=== PATIENT | male | born 1995 | race Caucasian/White ===

== ENCOUNTER 2018-06-25 05:16 | Day surgery (SDC) | payer BC ==
[~2018-06-25] VITALS: Ht 175.3 cm; Wt 72.0 kg
[~2018-06-25 05:16] MED LIST: None per pt; potassium citrate PO
[2018-06-25] MEDS ORDERED: MIDAZOLAM 1 MG/ML, 2ML ONE (05:52)
[2018-06-25] MEDS ORDERED: CEFAZOLIN 1,000 MG ONE ×2 (05:53)
[2018-06-25] MEDS ORDERED: DEXAMETHASONE 4 MG/ML, 1ML ONE ×2 (05:53)
[2018-06-25] MEDS ORDERED: FENTANYL PF 250 MCG/5ML ONE (05:53)
[2018-06-25] MEDS ORDERED: PROPOFOL 10 MG/ML, 20ML ONE ×2 (05:53)
[2018-06-25] MEDS ORDERED: BUPIVACAINE/PF 0.5% ONE (05:53)
[2018-06-25] MEDS ORDERED: EPINEPHRINE 1 MG/ML, 1ML ONE ×2 (05:54→06:41)
[2018-06-25] MEDS ORDERED: ROCURONIUM 10MG/ML,5ML ONE (05:54)
[2018-06-25] MEDS ORDERED: LIDOCAINE-MPF 2% ,5ML ONE ×2 (05:54)
[2018-06-25] MEDS ORDERED: SUCCINYLCHOLINE 20 MG/ML, 10ML ONE (05:54)
[2018-06-25 05:57] VITALS: BP 123/72
[2018-06-25] MEDS ORDERED: LACTATED RINGERS 1,000 ML IV SCH (05:58)
[2018-06-25] MEDS ORDERED: GABAPENTIN 300 MG CAPSULE ONE (06:19)
[2018-06-25] MEDS ORDERED: ACETAMINOPHEN 500 MG TABLET ONE (06:20)
[2018-06-25] MEDS ORDERED: GABAPENTIN 300 MG CAPSULE PO ONE (06:30)
[2018-06-25] MEDS ORDERED: ACETAMINOPHEN 500 MG TABLET PO ONE (06:30)
[2018-06-25] MEDS ORDERED: BUPIVACAINE 0.25% ONE (06:40)
[2018-06-25] MEDS ORDERED: ESMOLOL 100 MG/10 ML ONE (06:58)
[2018-06-25] MEDS ORDERED: METOCLOPRAMIDE 5 MG/ML, 2ML IV PRN (07:00)
[2018-06-25] MEDS ORDERED: LABETALOL 5MG/ML, 20ML IV PRN (07:00)
[2018-06-25] MEDS ORDERED: FENTANYL PF 100 MCG/2ML IV PRN (07:00)
[2018-06-25] MEDS ORDERED: OXYcodone 5 MG/5 ML ORAL.SOL UDC PO PRN (07:00)
[2018-06-25] MEDS ORDERED: ALBUTEROL SULFATE 2.5 MG/3 ML NPPB PRN (07:00)
[2018-06-25] MEDS ORDERED: MORPHINE SULFATE 4 MG/ML, 1ML IVPush PRN (07:00)
[2018-06-25] MEDS ORDERED: METOPROLOL 1 MG/ML, 5ML IV PRN (07:00)
[2018-06-25] MEDS ORDERED: DIPHENHYDRAMINE 50 MG/ML, 1ML IVPush PRN (07:00)
[2018-06-25] MEDS ORDERED: MEPERIDINE/PF 25MG/0.5ML IVPush PRN (07:00)
[2018-06-25] MEDS ORDERED: hydrALAzine 20 MG/ML, 1ML IV PRN (07:00)
[2018-06-25] MEDS ORDERED: DIAZEPAM 5 MG/ML, 2ML IVPush PRN (07:00)
[2018-06-25] MEDS ORDERED: HYDROmorphone 1 MG/ML, 1ML IV PRN (07:00)
[2018-06-25] MEDS ORDERED: LORazepam 2 MG/ML, 1ML IVPush PRN (07:00)
[2018-06-25] MEDS ORDERED: MIDAZOLAM 1 MG/ML, 2ML IV PRN (07:00)
[2018-06-25] MEDS ORDERED: PROCHLORPERAZINE 5 MG/ML, 2ML IV PRN (07:00)
[2018-06-25] MEDS ORDERED: EPHEDRINE 50 MG/ML, 1ML IVPush PRN (07:00)
[2018-06-25] MEDS ORDERED: KETOROLAC 30 MG/1 ML ONE (08:04)
[2018-06-25] MEDS ORDERED: ONDANSETRON 2MG/ML, 2ML ONE (08:04)
[2018-06-25] MEDS ORDERED: GLYCOPYRROLATE 0.2MG/1ML, 5ML ONE (08:07)
[2018-06-25] MEDS ORDERED: NEOSTIGMINE 1 MG/ML, 10ML ONE (08:07)
[2018-06-25] MEDS ORDERED: OXYcodone 5 MG/5 ML ORAL.SOL UDC ONE (09:31)
== END 2018-06-25 11:30 | disposition home or self-care (01) ==
LOC: OUT 05:16
PROVIDERS: ATTEND Orthopaedic Surgery
DX: S43.101A Unspecified dislocation of right acromioclavicular joint, initial encounter (principal); S43.431A Superior glenoid labrum lesion of right shoulder, initial encounter; X58.XXXA Exposure to other specified factors, initial encounter; Y93.89 Activity, other specified; Y92.89 Other specified places as the place of occurrence of the external cause; Y99.8 Other external cause status; Z88.0 Allergy status to penicillin
CPT/HCPCS: 23552; 29822; 64415; 73020; 76000; C1713; C1762; J0171; J0330; J0690; J1100; J1885; J2250; J2405; J2704; J2710; J3010; J3490; J7120

== ENCOUNTER 2019-01-15 04:21 | Emergency (ER) | payer BC ==
[~2019-01-15] VITALS: Ht 177.8 cm; Wt 71.0 kg
--- NOTE | 2019-01-15 04:27 | NUR ---
PT. C/O RIGHT FLANK PAIN, ABD PAIN, VOMITING X 30 MINUTES. HX OF KIDNEY STONES.
[2019-01-15] MEDS ORDERED: MORPHINE SULFATE 4 MG/ML, 1ML ONE ×4 (04:44→07:07)
[2019-01-15] MEDS ORDERED: ONDANSETRON 2MG/ML, 2ML ONE (04:44)
[2019-01-15] MEDS ORDERED: ONDANSETRON 2MG/ML, 2ML IVPush ONE (05:00)
[2019-01-15] MEDS ORDERED: SODIUM CHLORIDE FLUSH 10ML SYR IVF ONE (05:00)
[2019-01-15 05:01] LABS: BASOPHILS # (AUTO) 0.04 x10^3/uL (0-0.1); BASOPHILS % (AUTO) 1 % (0-1); EOSINOPHILS # (AUTO) 0.06 x10^3/uL (0-0.4); EOSINOPHILS % (AUTO) 1 % (1-7); LYMPHOCYTES # (AUTO) 3.23 x10^3/uL (1-3.4); LYMPHOCYTES % (AUTO) 40 % (22-44); MD NO; MEAN CORPUSCULAR HEMOGLOBIN 32.1 pg (27.5-34.5); MEAN CORPUSCULAR HGB CONC 35.3 g/dL (33.2-36.2); MEAN CORPUSCULAR VOLUME 90.8 fL (81-97); MEAN PLATELET VOLUME 7.9 fL (7.4-10.4); MONOCYTES # (AUTO) 0.69 x10^3/uL (0.2-0.8); MONOCYTES % (AUTO) 9 % (2-9); NEUTROPHILS # (AUTO) 4.12 x10^3/uL (1.8-6.8); NEUTROPHILS % (AUTO) 51 % (42-75); PLATELET COUNT 247 x10^3/uL (130-400); RED BLOOD COUNT 5.12 x10^6/uL (4.38-5.82); RED CELL DISTRIBUTION WIDTH 12.6 % (9.4-14.8)
[2019-01-15] MEDS: MORPHINE SULFATE 4 MG/ML, 1ML IVPush PRN ×2 (05:08→05:40)
--- NOTE | 2019-01-15 05:10 | NUR ---
PT TO CT
[2019-01-15 05:12] LABS: ALANINE AMINOTRANSFERASE 26 U/L (12-78); ALBUMIN 4.4 g/dL (3.4-5.0); ANION GAP 8 mmol/L (5-15); CALCIUM 9.1 mg/dL (8.5-10.1); CHLORIDE 113 mmol/L (98-107); CREATININE 1.22 mg/dL (0.7-1.3)
[2019-01-15 05:13] LABS: ALKALINE PHOSPHATASE 70 U/L (45-117); BILIRUBIN,TOTAL 1.2 mg/dL (0.2-1.0); TOTAL PROTEIN 7.4 g/dL (6.4-8.2)
[2019-01-15] MEDS ORDERED: KETOROLAC 30 MG/1 ML IV ONE (05:30)
[2019-01-15] MEDS ORDERED: KETOROLAC 30 MG/1 ML ONE (05:33)
--- NOTE | 2019-01-15 06:12 | NUR ---
PT GIVEN URINAL FOR UA
--- NOTE | 2019-01-15 06:27 | NUR ---
REPORT GIVEN TO KEVIN VILLANUEVA. PT MOVED TO ROOM 4
--- NOTE | 2019-01-15 06:40 | NUR ---
REPORT FROM KRISTOPHER RN. PT RESTING. WAITING FOR UA RESULTS. CALL LIGHT IN REACH
[2019-01-15 06:49] LABS: MICROSCOPIC INDICATED
[2019-01-15 06:53] LABS: CULTURE INDICATED? YES
--- NOTE | 2019-01-15 06:54 | NUR ---
REPORT TO JI BROWN
--- NOTE | 2019-01-15 07:00 | NUR ---
REPORT RECEIVED, CARE ASSUMED. PT LAYING ON GURNEY, "PAIN POSITIONAL" CURRENTLY 04/08. PULSE OX IN PLACE. PTS AT BEDSIDE. DR GEIGER AT BEDSIDE TO RE-EVAL PT.
--- NOTE | 2019-01-15 07:13 | NUR ---
PT MEDICATED FOR 710 PAIN ORDERED. PT PROVIDED WITH PO FLUIDS. NO OTHER NEEDS EXPRESSED AT THIS TIME.
[2019-01-15] MEDS ORDERED: MORPHINE SULFATE 4 MG/ML, 1ML IVPush ONE (07:30)
--- NOTE | 2019-01-15 07:50 | NUR ---
PT WITH PAIN DECREASED TO 4/10, DROWSY, AROUSES EASILY. IV DC'D WITH CANNULA INTACT. REVIEWED DC INSTRUCTIONS WITH PT, UNDERSTANDING VERBALIZED. PT LEFT AMB, GAIT STEADY.
[2019-01-15 08:04] VITALS: BP 128/88
== END 2019-01-15 08:06 | disposition home or self-care (01) ==
LOC: ED 07:46
DX: N13.2 Hydronephrosis with renal and ureteral calculous obstruction (principal)
CPT/HCPCS: 36415; 74176; 80053; 81001; 83690; 85025; 87086; 96374; 96375; 96376; 99284; J1885; J2405